=== PATIENT | female | born 1985 | race African-American/Black ===

== ENCOUNTER 2016-03-24 07:04 | Day surgery (SDC) | payer OTHER ==
[2016-03-24] MEDS ORDERED: LIDOCAINE 2% INJ (20 MG/ML) 20 ML MDV ONE (07:44)
[2016-03-24] MEDS ORDERED: MIDAZOLAM 2 MG/2 ML INJ ONE (07:45)
[2016-03-24] MEDS ORDERED: DEXAMETHASONE SOD PHOS INJ 10 MG/1 ML VIAL ONE (07:45)
[2016-03-24] MEDS ORDERED: ONDANSETRON HCL INJ/PF 4 MG/2 ML SDV ONE (07:45)
[2016-03-24] MEDS ORDERED: PROPOFOL INJ 200 MG/20 ML VIAL IV ONE (07:46)
[2016-03-24] MEDS ORDERED: HYDROMORPHONE HCL INJ/PF 2 MG/ML AMPULE ONE (07:47)
[2016-03-24] MEDS ORDERED: OXYMETAZOLINE HCL 0.05% NASAL SPRAY 15 ML BOTTLE ONE (07:57)
[2016-03-24] MEDS ORDERED: SUCCINYLCHOLINE CHLORIDE INJ 200 MG/10 ML VIAL ONE (08:52)
[2016-03-24] MEDS ORDERED: OXYCODONE-ACETAMINOPHEN 5-325 MG TABLET ONE (09:29)
--- NOTE | 2016-03-24 13:18 | OPERATIVE REPORT E ---
Operative Report NAME: DEVIN AMATO : 1985 AGE: 30Y DATE OF SURGERY: 03/24/2016 ROOM: INDICATIONS FOR OPERATION: This is a 30-year-old female with a history of recurrent tonsillitis. Please see her outpatient medical record for complete details regarding her medical history and examination. PREOPERATIVE DIAGNOSIS: RECURRENT TONSILLITIS. POSTOPERATIVE DIAGNOSIS: RECURRENT TONSILLITIS. OPERATION: Tonsillectomy. SURGEON: ADEEL SANABRIA M.D. FINDINGS: Bilateral symmetric and cryptic tonsils. ESTIMATED BLOOD LOSS: 15 mL. DESCRIPTION OF OPERATION: After properly identifying the patient and obtaining informed consent, verifying the surgical site, the patient was brought to the main operating room and placed in the supine position and general endotracheal anesthesia was attained in the standard fashion. The head of the bed was turned 90 degrees and the patient's neck was extended via shoulder roll and draped in the usual manner. Formal surgical time-out was then called. A Glen-Bradley type mouth gag with slotted tongue depressor was inserted, opened and suspended from a Wilcox stand. There was no evidence of bifid uvula or submucosal cleft palate by inspection and palpation. An electrolytes-assisted tonsillectomy was performed. First, the right tonsil was grasped and retracted inferomedially. An incision was made at the superior pole. Subcapsular plane of dissection was then developed and the tonsil was excised without complications. Hemostasis within the fossa was attained using suction cautery. A similar procedure was then performed the patient's left tonsil. The oropharynx was irrigated with normal saline. The mouth gag was removed. The mouth, teeth, lips and gums were inspected and found to be free of any surgical trauma. The patient was then returned to anesthesia, was extubated in the OR and taken to the PACU in stable condition having tolerated the procedure well. DICTATING PHYSICIAN: ADEEL SANABRIA M.D. [id number] PHY#: [id number] ID: [id number] JOB#: [id number] ACCT: [id number] cc:ADEEL SANABRIA M.D. >
== END 2016-03-24 09:58 | disposition home or self-care (01) ==
LOC: SC 07:04
PROVIDERS: ATTEND Otolaryngology
PROC: 0CTPXZZ Resection of Tonsils, External Approach (ICD-10-PCS; principal; 2016-03-24 08:15)
DX: J35.1 Hypertrophy of tonsils (principal); J02.9 Acute pharyngitis, unspecified; G47.30 Sleep apnea, unspecified; E89.0 Postprocedural hypothyroidism; J30.2 Other seasonal allergic rhinitis; E66.9 Obesity, unspecified; Z85.850 Personal history of malignant neoplasm of thyroid; Z79.899 Other long term (current) drug therapy; Z68.33 Body mass index [BMI] 33.0-33.9, adult
CPT/HCPCS: 88304 ×2; 42826; J2250; J3490 ×2; J1170; J0330; J2405; J2704; J1100; 170